=== PATIENT | male | born 1995 | race Caucasian/White ===

== ENCOUNTER 2021-12-09 22:22 | Emergency (ER) | payer OTHER ==
[~2021-12-09] VITALS: Ht 152.4 cm; Wt 65.8 kg
[2021-12-10] MEDS ORDERED: PEPCID AC20 MG PO (02:23)
[2021-12-10] MEDS ORDERED: PREVACID30 MG PO (02:23)
[2021-12-10] MEDS ORDERED: CHLORDIAZEPOXID25 MG PO (02:23)
[2021-12-10] MEDS ORDERED: CARAFATE1 GM PO (02:23)
== END 2021-12-10 02:32 ==
LOC: ER 22:22
DX: K29.70 Gastritis, unspecified, without bleeding (principal); F10.20 Alcohol dependence, uncomplicated